=== PATIENT | female | born 1935 ===

== ENCOUNTER 2023-07-07 07:55 | Outpatient (CLI) | payer MEDICARE, SELFPAY ==
[2023-07-07 09:06] LABS: Basophils Percent Auto 0.2 % (0.2-1.2); Eosinophils Percent Auto 0.1 % (0-4.4); Immature Granulocyte Absolute 0.03 K/mm3 (0.00-0.031); Immature Granulocyte Percent A 0.4 % (0-0.5); Lymphocytes Absolute Auto 2.95 K/mm3 (0.9-3.2); Lymphocytes Percent Auto 36.2 % (18.3-44.2); Mean Corpuscular HGB Conc 33.3 g/dl (32-36); Mean Corpuscular Hemoglobin 31.4 pg (26-34); Mean Corpuscular Volume 94.1 fl (80-100); Mean Platelet Volume 10.1 fl (7.4-10.4); Monocytes Absolute Auto 0.6 K/mm3 (0.1-0.6); Monocytes Percent Auto 7.4 % (2.6-8.5); Neutrophils Absolute Auto 4.5 K/mm3 (1.3-6.7); Neutrophils Percent Auto 55.7 % (45.5-73.1); Platelet Count Result 200 k/mm3 (150-375); Red Blood Count 4.78 M/mm3 (4.2-5.4); White Blood Count 8.1 K/mm3 (4.5-10.0)
[2023-07-07 09:17] LABS: Hemoglobin A1C 5.6 % (<5.7)
[2023-07-07 09:22] LABS: Alanine Aminotransferase 46 U/L (6-35); Albumin Level 4.2 g/dL (3.5-5.1); Alkaline Phosphatase 72 U/L (38-126); Anion Gap 9 mmol/L (8-16); Aspartate Amino Transferase 37 U/L (14-36); Bilirubin,Total 0.8 mg/dL (0.2-1.3); Blood Urea Nitrogen 13 mg/dL (7-17); Calcium 8.6 mg/dL (8.4-10.2); Carbon Dioxide 25 mmol/L (22-30); Chloride 108 mmol/L (98-107); Cholesterol 268 mg/dL (0-200); Estimated Glomerular Filt Rate 59; Glucose 118 mg/dL (65-110); HDL Direct 40 mg/dL; Potassium 3.6 mmol/L (3.4-5.0); Sodium 142 mmol/L (137-145); Triglycerides 271 mg/dL (<150)
[2023-07-07 09:33] LABS: LDL Cholesterol Direct 163 mg/dL
== END 2023-07-07 07:56 | disposition home or self-care (01) ==
LOC: ANHLAB 08:00
PROVIDERS: PCP Family Medicine Sports Medicine; Visit Provider Family Medicine Sports Medicine
DX: E11.9 Type 2 diabetes mellitus without complications (principal); I25.10 Atherosclerotic heart disease of native coronary artery without angina pectoris; E53.8 Deficiency of other specified B group vitamins
CPT/HCPCS: 36415; 80053; 80061; 82607; 83036; 85025